=== PATIENT | female | born 1970 | race Caucasian/White ===

== ENCOUNTER 2020-04-10 12:17 | Emergency (ER) | payer MEDICAID, SELFPAY ==
[~2020-04-10] VITALS: Ht 154.9 cm; Wt 89.8 kg
[2020-04-10 12:18] VITALS: BP 137/90; Ht 154.9 cm; Wt 89.8 kg
== END 2020-04-10 14:00 | disposition home or self-care (01) ==
LOC: ED 12:17
DX: J02.9 Acute pharyngitis, unspecified (principal); Z20.828 Contact with and (suspected) exposure to other viral communicable diseases
CPT/HCPCS: U0003